=== PATIENT | male | born 1970 | race Caucasian/White ===

== ENCOUNTER 2024-10-10 07:15 | Emergency (ER) | payer OTHER ==
[2024-10-10] VITALS (11 sets, daily range): BP systolic 117–146; BP diastolic 62–79; PULSE 75–79; RESP 18; TEMP 98.1; O2SAT 96
[~2024-10-10] VITALS: Ht 185.4 cm; Wt 117.9 kg
[2024-10-10 07:42] LABS: BASOPHIL # 0.1 10^3/uL (0.0-0.1); BASOPHIL % 0.2 % (0.2-1.2); EOSINOPHIL # 0.5 10^3/uL (0.0-0.2); EOSINOPHIL % 2.3 % (0.0-5.0); HEMATOCRIT(ML) 39.6 % (37.0-53.0); HEMOGLOBIN 12.9 g/dL (13.9-16.3); LYMPHOCYTES # 1.25 10^3/uL1 (1.0-4.8); MEAN CORP HGB 30.1 pg (26-34); MEAN CORP HGB CONCENTRATION 32.6 g/dL (33-36.5); MEAN CORP VOLUME 92.5 fL (78-100); MONOCYTES # 1.5 10^3/uL (0.3-0.8); NEUTROPHIL # 17.3 10^3/uL (1.8-7.7); NEUTROPHILS % 83.4 % (41.0-85.0); PLATELET COUNT 206 10^3/uL (150-400); RED BLOOD CELL 4.28 10^6/uL (4.50-5.90); WHITE BLOOD CELL 20.7 10^3/uL (4.5-11.0)
[2024-10-10 07:43] LABS: +ADD MANUAL DIFF(NO CHRG) NO
[2024-10-10 07:58] LABS: ALBUMIN(ML) 2.9 g/dL (3.4-5.0); ALBUMIN/GLOBULIN RATIO 0.674; ANION GAP 11.1; BUN/CREATININE RATIO 21.37 (10.0-20.0); CARBON DIOXIDE 26.4 mmol/L (20.0-32); CREATININE SERUM 1.31 mg/dL (0.59-1.40); EST GFR, NON-AA 56.6 (>/=60); POTASSIUM 4.5 mmol/L (3.6-5.2)
[2024-10-10] MEDS ORDERED: TRIPLE ANTIBIOTIC OINTMENT PKT TP ONE (08:17)
[2024-10-10] MEDS ORDERED: BOOSTRIX IM ONE (08:27)
[2024-10-10] MEDS: BOOSTRIX IM ONE (08:33)
[2024-10-10] MEDS ORDERED: DILAUDID 0.5 MG/0.5 ML SYRINGE ONE (09:34)
[2024-10-10] MEDS ORDERED: ZOFRAN ONE (09:34)
[2024-10-10] MEDS: ZOFRAN IV STA (09:39)
[2024-10-10] MEDS: DILAUDID 0.5 MG/0.5 ML SYRINGE IV STA (09:39)
== END 2024-10-10 09:45 | disposition short-term general hospital (02) ==
LOC: EDBD 07:15 → ER 07:15
DX: S22.20XA Unspecified fracture of sternum, initial encounter for closed fracture (principal); S22.41XA Multiple fractures of ribs, right side, initial encounter for closed fracture; S80.811A Abrasion, right lower leg, initial encounter; S09.90XA Unspecified injury of head, initial encounter; E78.00 Pure hypercholesterolemia, unspecified; I10 Essential (primary) hypertension; V89.2XXA Person injured in unspecified motor-vehicle accident, traffic, initial encounter; Y93.89 Activity, other specified; Y92.89 Other specified places as the place of occurrence of the external cause; Y99.8 Other external cause status
CPT/HCPCS: 99285; 70450; 96374; 96375; 90471; 90715; 71260; 72125; 74177; 80053; 85025; 36415; 93005; J2405; Q9965